=== PATIENT | female | born 1965 | race Caucasian/White ===

== ENCOUNTER 2018-06-15 14:19 | Emergency (ER) | payer OTHER ==
[~2018-06-15] VITALS: Ht 172.7 cm; Wt 91.7 kg
[~2018-06-15 14:19] MED LIST: CLIN300C8 PO; FLUT9.9S NS; MECL25TA3 PO; ONDA8TAB12 PO; SODI104S NS
[2018-06-15] MEDS ORDERED: predniSONE 20 MG TABLET PO ONE (15:15)
[2018-06-15] MEDS ORDERED: PRED-220 PO (15:22)
--- NOTE | 2018-06-15 15:23 | PHYS DOC ---
Past History Past Medical History: Arthritis Past Surgical History: No Surgical History Alcohol Use: None Drug Use: None Adult General Chief Complaint Chief Complaint: SKIN RASH/ABSCESS HPI HPI 53-year-old female presents with rash. Patient noticed a rash on the left side of her face, neck, bilateral hands that showed a couple days ago. This was one day after she was out removing [place]yl[place]reeper and one of her trees. She assumes that she got into some poison becky oil. The rash is erythematous and very pruritic. She was advised by the pharmacist to seek medical treatment due to the rash being on her face and neck. She denies any other injuries or complaints. Review of Systems Review of Systems Constitutional: Denies fever or chills [] Eyes: Denies change in visual acuity, redness, or eye pain [] HENT: Denies nasal congestion or sore throat [] Respiratory: Denies cough or shortness of breath [] Cardiovascular: No additional information not addressed in HPI [] GI: Denies abdominal pain, nausea, vomiting, bloody stools or diarrhea [] : Denies dysuria or hematuria [] Musculoskeletal: Denies back pain or joint pain [] Integument: Rash [] Neurologic: Denies headache, focal weakness or sensory changes [] Endocrine: Denies polyuria or polydipsia [] All other systems were reviewed and found to be within normal limits, except as documented in this note. Allergies Allergies Allergies Coded Allergies Type Severity Reaction Last Updated Verified diphenhydramine Allergy Mild "bad dreams" 06/15/18 Yes amoxicillin Allergy Unknown 03/11/16 Yes Physical Exam Physical Exam Constitutional: Well developed, well nourished, no acute distress, non-toxic appearance. [] HENT: Normocephalic, atraumatic, bilateral external ears normal, oropharynx moist, no oral exudates, nose normal. [] Eyes: PERRLA, EOMI, conjunctiva normal, no discharge. [] Neck: Normal range of motion, no tenderness, supple, no stridor. [] Cardiovascular:Heart rate regular rhythm, no murmur [] Lungs & Thorax: Bilateral breath sounds clear to auscultation [] Abdomen: Bowel sounds normal, soft, no tenderness, no masses, no pulsatile masses. [] Skin: Erythematous, vesicular rash on the patient's neck, face, bilateral arms and hands consistent with rhus dermatitis.[] Back: No tenderness, no CVA tenderness. [] Extremities: No tenderness, no cyanosis, no clubbing, ROM intact, no edema. [] Neurologic: Alert and oriented X 3, normal motor function, normal sensory function, no focal deficits noted. [] Psychologic: Affect normal, judgement normal, mood normal. [] Current Patient Data Vital Signs Vital Signs Date Time Temp Pulse Resp B/P (MAP) Pulse Ox O2 Delivery O2 Flow Rate FiO2 06/15/18 14:19 97.8 81 20 99 Room Air EKG EKG [] Radiology/Procedures Radiology/Procedures [] Course & Med Decision Making Course & Med Decision Making Pertinent Labs and Imaging studies reviewed. (See chart for details) The patient appears to have rhus dermatitis. I will treat her with a 2 week course of prednisone. Will give the first dose in the ED. She has elected not to get a steroid injection. She is stable for discharge at this time. [] Dragon Disclaimer Dragon Disclaimer This electronic medical record was generated, in whole or in part, using a voice recognition dictation system. Departure Departure: Impression: Primary Impression: Poison becky dermatitis Disposition: HOME, SELF-CARE Condition: STABLE Referrals: VICTOR HUGO GRIMALDO (PCP) Patient Instructions: Poison Becky, Cosr-xx-Rirh Scripts Prednisone (PREDNISONE) 10 Mg Tablet 10 MG PO UD for PREDNISONE TAPER, #41 TAB 0 Refills Take 3 tablets by mouth twice a day for 3 days, then take 2 tablets by mouth twice a day for 4 days, then take 1 tablet by mouth twice a day for 4 days, then take 1 tablet by mouth daily x 3 days, then stop. Prov: KRISHNA MIX DO 06/15/18 KRISHNA MIX DO Jun 15, 2018 15:23
[2018-06-15] MEDS ORDERED: predniSONE 20 MG TABLET ONE (15:25)
[2018-06-15 15:26] VITALS: BP 133/85
== END 2018-06-15 15:33 | disposition home or self-care (01) ==
LOC: ER 14:19
DX: L23.7 Allergic contact dermatitis due to plants, except food (principal); M19.90 Unspecified osteoarthritis, unspecified site; Z88.1 Allergy status to other antibiotic agents; Z88.8 Allergy status to other drugs, medicaments and biological substances
CPT/HCPCS: 99283; J7512

== ENCOUNTER → 2019-01-13 | Outpatient (CLI) | payer OTHER ==
[~2019-01-13] MED LIST changes: +PRED-220 PO
[2019-01-13 09:24] LABS: ALBUMIN 3.8 g/dL (3.4-5.0); ALBUMIN/GLOBULIN RATIO 1.1 (1.0-1.7); CALCIUM 9.3 mg/dL (8.5-10.1); CREATININE 0.9 mg/dL (0.6-1.0); GFR 65.5; POTASSIUM 3.9 mmol/L (3.5-5.1); TOTAL BILIRUBIN 0.6 mg/dL (0.2-1.0); TOTAL PROTEIN 7.3 g/dL (6.4-8.2)
[2019-01-13 13:43] LABS: THYROID STIM HORMONE (TSH) 2.961 uIU/mL (0.358-3.740)
[2019-01-13 18:46] LABS: BASO # 0.1 x10^3/uL (0.0-0.2); BASO % 1 % (0-3); EOS # 0.3 x10^3/uL (0.0-0.7); EOS % 4 % (0-3); HEMATOCRIT 42.9 % (36.0-47.0); HEMOGLOBIN 14.5 g/dL (12.0-15.5); LYMPH # 2.8 x10^3/uL (1.0-4.8); LYMPH % 34 % (24-48); MEAN CORPUSCULAR HEMOGLOBIN 30 pg (25-35); MEAN CORPUSCULAR HGB CONC 34 g/dL (31-37); MEAN CORPUSCULAR VOLUME 89 fL (79-100); MONO # 0.7 x10^3/uL (0.0-1.1); MONO % 9 % (0-9); NEUT # 4.4 x10^3uL (1.8-7.7); NEUT % 53 % (31-73); RED BLOOD COUNT 4.81 x10^6/uL (3.50-5.40); RED CELL DISTRIBUTION WIDTH 13.1 % (11.5-14.5); WHITE BLOOD COUNT 8.3 x10^3/uL (4.0-11.0)
[2019-01-13 19:07] LABS: RHEUMATOID FACTOR <10.0 IU/mL (0.0-13.9)
[2019-01-13 19:10] LABS: PLATELET COUNT 213 x10^3/uL (140-400)
[2019-01-13 20:07] LABS: PLT ESTIMATE ADEQUATE (ADEQUATE)
[2019-01-13 20:08] LABS: PLATELET CLUMP PRESENT; SEDIMENTATION RATE 10 (0-25)
[2019-01-14 08:12] LABS: HEMOGLOBIN A1C 6.1 % (4.8-5.6)
[2019-01-14 21:07] LABS: CYCLIC CITRULLIN PEP AB 6 units (0-19)
== END | disposition home or self-care (01) ==
LOC: LAB 08:06
PROVIDERS: ATTEND Family Medicine
DX: Z00.00 Encounter for general adult medical examination without abnormal findings (principal); R53.83 Other fatigue; M54.9 Dorsalgia, unspecified
CPT/HCPCS: 36415; 80053; 80061; 82306; 82607; 83036; 84443; 85025; 85651; 86038; 86200; 86431

== ENCOUNTER → 2019-10-22 | Outpatient (CLI) | payer OTHER ==
[~2019-10-22] MED LIST changes: +MECL-75 PO; -MECL25TA3 PO
--- NOTE | 2019-10-22 11:57 | RAD ---
Axial CT images of the abdomen and pelvis with coronal and sagittal reformats were performed without contrast per renal colic protocol. Exposure: One or more of the following individualized dose reduction techniques were utilized for this examination: 1. Automated exposure control 2. Adjustment of the mA and/or kV according to patient size 3. Use of iterative reconstruction technique Indication: Reason: RIGHT FLANK PAIN / Spl. Instructions: / History: Comparison: None. Findings: No renal, ureteral, or bladder stones are identified. No hydronephrosis, perinephric fat stranding, or hydroureter are seen bilaterally. The remainder of the non contrasted abdomen and pelvis is normal in appearance, although evaluation is limited on an unenhanced exam. Impression: 1. No evidence of urolithiasis or urinary obstruction. Electronically signed by: Axel Shane MD (10/22/2019 11:54 AM) [id number]
== END | disposition home or self-care (01) ==
LOC: CT 08:01
PROVIDERS: ATTEND Family Medicine
DX: R10.9 Unspecified abdominal pain (principal)
CPT/HCPCS: 74150; 74176

== ENCOUNTER → 2020-07-06 | Outpatient (CLI) | payer OTHER ==
[~2020-07-06] MED LIST changes: -CLIN300C8 PO; +CLIN300C9 PO
[2020-07-06 17:30] LABS: BASO # 0.1 x10^3/uL (0.0-0.2); BASO % 1 % (0-3); EOS # 0.2 x10^3/uL (0.0-0.7); EOS % 3 % (0-3); HEMATOCRIT 42.6 % (36.0-47.0); HEMOGLOBIN 14.8 g/dL (12.0-15.5); LYMPH # 3.3 x10^3/uL (1.0-4.8); LYMPH % 34 % (24-48); MEAN CORPUSCULAR HEMOGLOBIN 31 pg (25-35); MEAN CORPUSCULAR HGB CONC 35 g/dL (31-37); MEAN CORPUSCULAR VOLUME 89 fL (79-100); MONO # 0.7 x10^3/uL (0.0-1.1); MONO % 8 % (0-9); NEUT # 5.3 x10^3uL (1.8-7.7); NEUT % 55 % (31-73); PLATELET COUNT 45 x10^3/uL (140-400); RED CELL DISTRIBUTION WIDTH 13.2 % (11.5-14.5); WHITE BLOOD COUNT 9.6 x10^3/uL (4.0-11.0)
[2020-07-06 17:33] LABS: ALBUMIN 4.2 g/dL (3.4-5.0); ALBUMIN/GLOBULIN RATIO 1.2 (1.0-1.7); CALCIUM 9.5 mg/dL (8.5-10.1); CREATININE 0.9 mg/dL (0.6-1.0); POTASSIUM 3.9 mmol/L (3.5-5.1); TOTAL BILIRUBIN 0.4 mg/dL (0.2-1.0); TOTAL PROTEIN 7.7 g/dL (6.4-8.2)
[2020-07-06 23:05] LABS: PLT ESTIMATE DECREASED (ADEQUATE)
[2020-07-07 20:14] LABS: THYROID STIM HORMONE (TSH) 1.99 uIU/mL (0.358-3.740)
== END ==
LOC: LAB 16:47
PROVIDERS: ATTEND Family Medicine
DX: R53.83 Other fatigue (principal)
CPT/HCPCS: 36415; 80053; 80061; 84443; 85025

== ENCOUNTER 2020-09-24 12:43 | Emergency (ER) | payer OTHER ==
[~2020-09-24] VITALS: Ht 172.7 cm; Wt 91.7 kg
[2020-09-24 13:01] VITALS: BP 157/79
--- NOTE | 2020-09-24 14:15 | EKG ---
[address] [address] Test Date: 2020-09-24 Test Time: 13:01:58 Pat Name: IDALIA SAHU Department: Room: Gender: F Ad Clerk: CARROLL : 1965 Requested By: SUZANNE MASTERS Order Number: [id number] Reading MD: Measurements Intervals [place] Rate: 58 P: 60 IL: 168 QRS: 34 QRSD: 80 T: 41 QT: 396 QTc: 392 Interpretive Statements SINUS RHYTHM NORMAL ECG RI6.02 No previous ECG available for comparison
[2020-09-24] MEDS: IBUPROFEN 600 MG TABLET. PO ONE (14:23)
--- NOTE | 2020-09-24 14:29 | PHYS DOC ---
Past History Past Medical History: Arthritis (SUZANNE MASTERS APRN) Past Surgical History: No Surgical History (SUZANNE MASTERS APRN) Alcohol Use: None Drug Use: None (SUZANNE MASTERS APRN) General Adult EDM: Chief Complaint: BACK INJURY HPI: HPI: Patient is a 55-year-old female presents with right upper quadrant pain that started yesterday. Patient states "yesterday I started having pain in my shoulder blade that wraps around underneath my right ribs". "I tried taking Tylenol and Tums with no relief". Patient states that pain has been constant since yesterday. Patient states pain is worse with sitting up but improves with laying down stretched out. Denies fever. Denies nausea/vomiting/diarrhea. (SUZANNE MASTERS APRN) Review of Systems: Review of Systems: Constitutional: Denies fever or chills Eyes: Denies change in visual acuity HENT: Denies nasal congestion or sore throat Respiratory: Denies cough or shortness of breath Cardiovascular: Denies chest pain or edema GI: Reports right upper quadrant abdominal pain, denies nausea, vomiting, bloody stools or diarrhea : Denies dysuria Musculoskeletal: Reports right-sided upper shoulder pain Integument: Denies rash Neurologic: Denies headache, focal weakness or sensory changes Endocrine: Denies polyuria or polydipsia Lymphatic: Denies swollen glands Psychiatric: Denies depression or anxiety (SUZANNE MASTERS APRN) Current Medications: Current Meds: Current Medications Medications (Trade) Dose Ordered Sig/Gregorio Start Time Stop Time Status Last Admin Dose Admin Ibuprofen (Motrin) 600 mg 1X ONCE 09/24/20 14:15 09/24/20 14:16 UNV (SUZANNE MASTERS APRN) Allergies: Allergies: Allergies Coded Allergies Type Severity Reaction Last Updated Verified diphenhydramine Allergy Mild "bad dreams" 06/15/18 Yes amoxicillin Allergy Unknown 09/24/20 Yes (SUZANNE MASTERS APRN) Physical Exam: PE: Constitutional: Well developed, well nourished, no acute distress, non-toxic appearance. [] HENT: Normocephalic, atraumatic, bilateral external ears normal, oropharynx moist, no oral exudates, nose normal. [] Eyes: PERRLA, EOMI, conjunctiva normal, no discharge. [] Neck: Normal range of motion, no tenderness, supple, no stridor. [] Cardiovascular:Heart rate regular rhythm, no murmur [] Lungs & Thorax: Bilateral breath sounds clear to auscultation [] Abdomen: Bowel sounds normal, soft, right upper quadrant tenderness Skin: Warm, dry, no erythema, no rash. [] Back: No tenderness, no CVA tenderness. [] Extremities: No tenderness, no cyanosis, no clubbing, ROM intact, no edema. [] Neurologic: Alert and oriented X 3, normal motor function, normal sensory function, no focal deficits noted. [] Psychologic: Affect normal, judgement normal, mood normal. [] (SUZANNE MASTERS APRN) Current Patient Data: Vital Signs: Vital Signs Date Time Temp Pulse Resp B/P (MAP) Pulse Ox O2 Delivery O2 Flow Rate FiO2 09/24/20 13:01 99.1 60 18 157/79 98 Room Air (SUZANNE MASTERS APRN) EKG: EKG: Sinus rhythm. Heart rate 58 bpm [] (SUZANNE MASTERS APRN) Radiology/Procedures: Radiology/Procedures: []US ABDOMEN LIMITED History: Reason: RUQ PAIN / Spl. Instructions: / History: Comparison: CT October 22, 2019. Technique: Transabdominal ultrasound images are obtained of the right upper quadrant. Findings: Liver is increased in echogenicity. Right hepatic lobe measures 16.4 cm. Portal flow is hepatopedal. Gallbladder has an unremarkable appearance. Common bile duct measures 3 mm in diameter. Visualized pancreas not well seen due to overlying bowel gas. The right kidney measures 10.0 x 4.8 x 3.5 cm. No hydronephrosis. Visualized portions of the aorta and IVC have normal caliber. IMPRESSION: 1. Increased hepatic echotexture, may indicate steatosis. Electronically signed by: Familia Martin DO (09/24/2020 3:03 PM) [facility] (SUZANNE MASTERS APRN) Heart Score: C/O Chest Pain: No Risk Factors: Risk Factors: DM, Current or recent (<one month) smoker, HTN, HLP, family history of CAD, obesity. Risk Scores: Score 0 - 3: 2.5% MACE over next 6 weeks - Discharge Home Score 4 - 6: 20.3% MACE over next 6 weeks - Admit for Clinical Observation Score 7 - 10: 72.7% MACE over next 6 weeks - Early Invasive Strategies (SUZANNE MASTERS APRN) Course & Med Decision Making: Course & Med Decision Making Pertinent Labs and Imaging studies reviewed. (See chart for details) [] 55-year-old female presents with right upper quadrant pain that radiates into her right shoulder. Patient states the pain has been constant since yesterday. Patient has tried taking Tums and Tylenol with no relief. Ultrasound shows Increased hepatic echotexture, may indicate steatosis. Lipase is 542. UA is negative. All other labs are unremarkable. Discussed test results with patient. Explained to patient that she will need to follow-up with her PCP for further testing if pain continues. She denies needing anything for pain. Patient prefers to take ibuprofen and Tylenol. Gave patient strict return precautions. Patient states that she understands and is appreciative of patient care. (SUZANNE MASTERS APRN) Course & Med Decision Making I oversaw on the above date of service of this patient. This patient was evaluated, examined, treated, and dispositioned from the emergency department by the mid-level practitioner. I reviewed note and agree to findings, plan of care, and disposition as stated. Electronically signed, Jany David DO (JANY DAVID DO) Alfredito Disclaimer: Alfredito Disclaimer: This electronic medical record was generated, in whole or in part, using a voice recognition dictation system. (SUZANNE MASTERS APRN) Departure Departure: Impression: Primary Impression: RUQ abdominal pain Disposition: HOME / SELF CARE / HOMELESS Condition: STABLE Referrals: SCOOBY ANNE MD (PCP) Patient Instructions: Abdominal Pain (Nonspecific) Additional Instructions: You are seen in the emergency room for right upper quadrant pain. Ultrasound shows fatty liver. All labs were unremarkable. Please call and follow-up with your PCP. Return emergency room if you have worsening symptoms or concerns. EMERGENCY DEPARTMENT GENERAL DISCHARGE INSTRUCTIONS Thank you for coming to [facility] (ED) today and trusting us with you care. We trust that you had a positivie experience in our Emergency Department. If you wish to speak to the department management, you may call the director at [phone]. YOUR FOLLOW UP INSTRUCTIONS ARE FOLLOWS: 1. Do you have a private Doctor? If you do not have a private doctor, please ask for a resource list of physicians or clinics that may be able to assist you with follow up care. 2. The Emergency Physician has interpreted your x-rays. The X-Ray specialist will also review them. If there is a change in the findings, you will be notified in 48 hours when at all possible. 3. A lab test or culture has been done, your results will be reviewed and you will be notified if you need a change in treatment. ADDITIONAL INSTRUCTIONS AND INFORMATION: 1. Your care today has been supervised by a physician who is specially trained in emergency care. Many problems require more than one evaluation for a complete diagnosis and treatment. We recommend that you schedule your follow up appointment as recommended to ensure complete treatment of you illness or injury. If you are unable to obtain follow up care and continue to have a problem, or if your condition worsens, we recommend that you return to the ED. 2. We are not able to safely determine your condition over the phone nor are we able to give sound medical advice over the phone. For these safety reasons, if you call for medical advice we will ask you to come to the ED for further evaluation. 3. If you have any questions regarding these discharge instructions please call the ED at [phone]. SAFETY INFORMATION: In the interest of safety, wellness, and injury prevention; we encourage you to wear your sealbelt, if you smoke; quite smoking, and we encourage family to use a protective helmet for bicycling and other sporting events that present an increased risk for head injury. IF YOUR SYMPTOMS WORSEN OR NEW SYMPTOMS DEVELOP, OR YOU HAVE CONCERNS ABOUT YOUR CONDITION; OR IF YOUR CONDITION WORSENS WHILE YOU ARE WAITING FOR YOUR FOLLOW UP APPOINTMENT; EITHER CONTACT YOUR PRIMARY CARE DOCTOR, THE PHYSICIAN WHOSE NAME AND NUMBER YOU WERE GIVEN, OR RETURN TO THE ED IMMEDIATELY. Scripts Ondansetron Hcl (ZOFRAN) 4 Mg Tablet 4 MG PO TID PRN PRN for NAUSEA for 14 Days, #9 TAB Prov: SUZANNE MASTERS APRN 09/24/20 Hydrocodone Bit/Acetaminophen (HYDROCODONE-APAP 5-325 ) 1 Each Tablet 1 TAB PO PRN Q6HRS PRN for PAIN for 3 Days, #12 TAB 0 Refills Prov: SUZANNE MASTERS APRN 09/24/20 SUZANNE MASTERS APRN Sep 24, 2020 14:29 JANY DAVID DO Sep 26, 2020 08:44
--- NOTE | 2020-09-24 15:05 | RAD ---
US ABDOMEN LIMITED History: Reason: RUQ PAIN / Spl. Instructions: / History: Comparison: CT October 22, 2019. Technique: Transabdominal ultrasound images are obtained of the right upper quadrant. Findings: Liver is increased in echogenicity. Right hepatic lobe measures 16.4 cm. Portal flow is hepatopedal. Gallbladder has an unremarkable appearance. Common bile duct measures 3 mm in diameter. Visualized pancreas not well seen due to overlying bowel gas. The right kidney measures 10.0 x 4.8 x 3.5 cm. No hydronephrosis. Visualized portions of the aorta and IVC have normal caliber. IMPRESSION: 1. Increased hepatic echotexture, may indicate steatosis. Electronically signed by: Familia Martin DO (09/24/2020 3:03 PM) [facility]
[2020-09-24 15:08] LABS: CALCIUM 9.5 mg/dL (8.5-10.1); CREATININE 0.8 mg/dL (0.6-1.0); GFR 74.5; POTASSIUM 3.9 mmol/L (3.5-5.1)
[2020-09-24 15:13] LABS: ALBUMIN 4.4 g/dL (3.4-5.0); ALBUMIN/GLOBULIN RATIO 1.3 (1.0-1.7); TOTAL BILIRUBIN 0.6 mg/dL (0.2-1.0); TOTAL PROTEIN 7.8 g/dL (6.4-8.2)
[2020-09-24 15:28] LABS: CLARITY,URINE CLEAR; COLOR,URINE YELLOW
[2020-09-24 15:29] LABS: BILIRUBIN,URINE NEG (NEG); GLUCOSE,URINE NEG (NEG); NITRITE,URINE NEG (NEG); UROBILINOGEN,URINE 0.2 mg/dL (0.2 mg/dL)
[2020-09-24 15:31] LABS: BACTERIA,URINE 0 /HPF (0-FEW); SQUAMOUS EPITHELIAL CELL,UR FEW /LPF; WBC,URINE OCC /HPF (0-4)
[2020-09-24 16:07] LABS: BASO # 0.1 x10^3/uL (0.0-0.2); BASO % 1 % (0-3); EOS # 0.2 x10^3/uL (0.0-0.7); EOS % 2 % (0-3); HEMATOCRIT 43.8 % (36.0-47.0); HEMOGLOBIN 15.4 g/dL (12.0-15.5); LYMPH # 2.5 x10^3/uL (1.0-4.8); LYMPH % 33 % (24-48); MEAN CORPUSCULAR HEMOGLOBIN 31 pg (25-35); MEAN CORPUSCULAR HGB CONC 35 g/dL (31-37); MEAN CORPUSCULAR VOLUME 89 fL (79-100); MONO # 0.6 x10^3/uL (0.0-1.1); MONO % 8 % (0-9); NEUT # 4.2 x10^3uL (1.8-7.7); NEUT % 56 % (31-73); PLATELET COUNT 244 x10^3/uL (140-400); RED BLOOD COUNT 4.93 x10^6/uL (3.50-5.40); RED CELL DISTRIBUTION WIDTH 13.1 % (11.5-14.5); WHITE BLOOD COUNT 7.5 x10^3/uL (4.0-11.0)
[2020-09-24] MEDS ORDERED: HYDR-2155 PO (17:11)
[2020-09-24] MEDS ORDERED: ONDA4TAB7 PO (17:11)
== END 2020-09-24 17:00 | disposition home or self-care (01) ==
LOC: ER 12:43
DX: R10.11 Right upper quadrant pain (principal); Z88.1 Allergy status to other antibiotic agents; Z88.8 Allergy status to other drugs, medicaments and biological substances
CPT/HCPCS: 36415; 76705; 80053; 81001; 81025; 83690; 85025; 93005; 99285-25

== ENCOUNTER → 2021-01-31 | Outpatient (CLI) | payer OTHER ==
[~2021-01-31] MED LIST changes: +CLIN-95 PO; -CLIN300C9 PO; +HYDR-2155 PO; +ONDA4TAB7 PO
--- NOTE | 2021-01-31 16:55 | RAD ---
EXAMINATION: XR HIP_LT 2-3 VIEWS CLINICAL HISTORY: Left hip pain TECHNIQUE: XR HIP_LT 2-3 VIEWS Number of Images/Views: 2 COMPARISON: None FINDINGS: Joint space alignment relatively well-maintained in left hip. Pubic symphysis and left SI joint maint ained. No acute fracture. IMPRESSION: No acute osseous abnormality. Electronically signed by: Prieto Rojo DO (01/31/2021 4:53 PM) DIANA
== END ==
LOC: RAD 16:20
PROVIDERS: ATTEND Family Medicine
DX: M25.552 Pain in left hip (principal)
CPT/HCPCS: 73502